=== PATIENT | male | born 2000 | race Caucasian/White ===

== ENCOUNTER 2020-07-14 11:12 | Emergency (ER) | payer MEDICAID, SELFPAY ==
[2020-07-14 11:21] VITALS: BP 139/71; PULSE 98; RESP 16; TEMP 36.8; O2SAT 98; BMI 19.2
--- NOTE | 2020-07-14 11:36 | MHC.RECOVSUP ---
? Reason for consult support o Current location: ED6H o Identified substance use concern: Heroin - Support ? Intervention: o Community resources provided o Harm reduction discussion ? Plan: o Referral to CCC o Patient to follow up with [facility] after discharge ? Additional information: Patient refused detox But was open to starting M.A.T.. Patient was given the resources to the [facility] and [facility]. Patient would like a follow up call...
--- NOTE | 2020-07-14 11:41 | MHC.RECOVSUP ---
Recovery Support note: Patient is a 20 year old Ethiopian speaking male who presented to [facility] ED after using heroin and falling asleep in a car. Patient met with Orchestra Leader, [place], and expressed interest in MAT. This bond underwriter met with patient to discuss MAT and the CCC. Patient reports no questions at this time and states that he wants to discuss it with his family before committing to an appointment. Patient has information for CCC and MAT clinics in the area. Orchestra Leader discussed [facility] [place] and recovery support with patient.
--- NOTE | 2020-07-14 12:40 | ED_ITS ---
HPI - General Adult General Chief complaint: Overdose Stated complaint: HEROIN USE,FOUND IN CAR Time Seen by Provider: 07/14/20 12:56 Source: patient Mode of arrival: ambulatory Limitations: no limitations History of Present Illness HPI narrative: Patient was found sleeping in his car and brought to the ED. patient admits to sniffing heroin and usually when he sniffs heroin he goes into a deep sleep. Patient states he was not trying to kill himself. Patient states it was not an overdose. Patient states he was sleeping in the car. Patient is not suicidal or homicidal. Patient does not want detox, but is interested in Suboxone program. Review of Systems Review of Systems: Yes all other systems are reviewed and are negative Constitutional: Constitutional: Reports as per HPI and Reports no additional constitutional complaints Eyes: Eyes: Reports as per HPI and Reports no additional eye complaints ENT: Reports system reviewed and no additional complaints, except as documented and Reports as per HPI Cardiovascular: Cardiovascular: Reports as per HPI and Reports no additional cardiovascular complaints Respiratory: Respiratory: Reports as per HPI and Reports no additional respiratory complaints Gastrointestinal: Gastrointestinal: Reports as per HPI and Reports no additional gastrointestinal complaints Genitourinary: Genitourinary: Reports no additional male genitourinary complaints and Reports as per HPI Musculoskeletal: Musculoskeletal: Reports no additional musculoskeletal complaints Neurologic: Reports system reviewed and no additional complaints, except as documented and Reports as per HPI Psychiatric: Psychiatric: Reports no additional psychiatric complaints and Reports as per HPI [facility] Past Medical History Medical History (Updated 07/14/20 @ 12:58 by THERESE Morris) No known problems Social History Social History Advance Directives: No Advance Directives Information Provided: No Physical Exam Vital Signs: Vital Signs: Last Vital Signs Temp 98.2 F 07/14/20 11:21 Pulse 98 07/14/20 11:21 Resp 16 07/14/20 11:21 BP 139/71 07/14/20 11:21 Pulse Ox 98 07/14/20 11:21 Body Mass Index 19.2 Const: General: cooperative, healthy appearing, comfortable, no acute distress, well developed, alert and awake Orientation/consciousness: patient oriented x3 HENMT: Head: Yes normal to inspection, Yes No palpable skull fracture present, Yes normocephalic, Yes atraumatic, No abrasion, No Acrocyanosis present, No Jackson's sign, No contusion, No cranial bruits, No hematoma, No laceration, No occipital foramen tenderness, No palpable skull fracture, No raccoon eyes, No scalp lesion, No scalp tenderness, No Temporal artery tenderness present and No periorbital ecchymosis Eyes: General: appearance normal, both eyes and all related structures Neck: Neck: Yes normal visual inspection, Yes full ROM, Yes no lymphadenopathy, Yes no meningeal signs, Yes trachea midline, Yes supple and No tender Chest: Chest palpation & inspection: normal inspection of the chest and normal palpation of entire chest wall Resp: Effort & Inspection: normal respiratory effort and able to speak in complete sentences Auscultation: clear to auscultation bilaterally Cardio: Jugular venous distension: no JVD Heart sounds: S1 normal heart sound present and S2 normal heart sound present GI: Inspection: Yes normal to inspection and No abdominal wall ecchymosis Palpation (GI): Soft to palpation, not firm, nontender, no guarding and not rigid : General: No CVA tenderness and Yes no CVA tenderness Back/Spine/Pelvis: Back: no CVA tenderness, No CVA tenderness and No back tenderness Skin: General skin exam: no rashes or lesions noted and elasticity normal Neuro: General: patient oriented x3, no meningeal signs and CN's II-XI intact bilaterally Cranial nerves: Yes CN's II-XII intact bilaterally Extrem: General: Yes normal to inspection and Yes full ROM Psych: Appearance: grossly normal, well kempt and not disheveled Course Course Course Narrative: Patient will be observed in the ED to make sure oxygen saturation did not desat. Patient to be seen by field hockey and lacrosse coach Reevaluation(s) Reevaluation #1: Patient was seen by field hockey and lacrosse coach and patient refused detox. field hockey and lacrosse coach offered Suboxone program and patient accepted and was seen by at care team consulted for Suboxone. Patient presently is alert oriented x3. Negative for signs of trauma on inspection of body. Patient O2 saturation stayed above 97%. Medical Decision Making MDM Narrative Medical decision making narrative: Opiate abuse Discharge Plan Discharge Clinical Impression: Opiate abuse, continuous Patient Disposition: Home, Self-Care Instructions: Opioid Use Disorder (ED) Additional Instructions: Return to the ED immediately for any suicidal/homicidal ideation, auditory/visual hallucinations, any physical complaints, or any other concerning symptoms. Please follow-up with referred Suboxone program Clinic. Interventions: ED Discharge Assessment Last Done: 07/14/20 14:00 Discharge Date/Time: 07/14/20 13:59 Print Language: Omani
== END 2020-07-14 13:59 | disposition home or self-care (01) ==
PROVIDERS: Emergency Provider Emergency Medicine; PCP Pediatrics
DX: T40.1X1A Poisoning by heroin, accidental (unintentional), initial encounter (principal); Y92.810 Car as the place of occurrence of the external cause; F11.10 Opioid abuse, uncomplicated; Z71.51 Drug abuse counseling and surveillance of drug abuser
CPT/HCPCS: 99283

== ENCOUNTER 2022-04-14 23:07 | Emergency (ER) | payer MEDICAID, SELFPAY ==
[2022-04-14 23:30] VITALS: BP 140/96; BP 148/87; PULSE 104; PULSE 71; RESP 16; TEMP 37.6; O2SAT 97; BMI 21.5
[2022-04-14 23:32] VITALS: BP 148/87; PULSE 71; RESP 16; TEMP 37.6; O2SAT 97
--- NOTE | 2022-04-14 23:37 | ED_ITS ---
HPI - General Adult General Chief complaint: ETOH/Substance Use Stated complaint: DRUG USE,NO COMPLAINTS Source: patient and EMS Mode of arrival: EMS Limitations: no limitations History of Present Illness HPI narrative: This is a 22-year-old male history of substance abuse presenting to the emergency department via ambulance after being found nodding off in his car by police. Patient states that he snorted 1 bag of heroin and use 10 dollars worth of crack. Patient tells me he uses a few times a month. He tells me he is currently in a treatment program and seems to be doing well with it he tells me he may have relapsed today. Patient denies SI and HI. Denies alcohol, tobacco. Denies visual, auditory and tactile hallucinations. Denies medical complaints. He tells me he came in today because the boat canvas maker and installer and courage him to come in and get help. He is alert and oriented x4. Denies any trauma. Related Data Allergies Allergy/AdvReac Type Severity Reaction Status Date / Time Unable to Assess Allergy Unverified 04/14/22 23:37 Review of Systems Review of Systems: Constitutional : No Weight loss, No Fever, No Chills, No Fatigue, No Malaise ENT/Mouth : No sore throat, No Rhinorrhea Eyes: No Eye Pain, No Swelling, No Redness Cardiovascular : No Chest Pain, No SOB, No Dyspnea on Exertion, No Orthopnea, No Edema, No Palpitations Respiratory : No Cough, No Sputum, No Wheezing Gastrointestinal : No Nausea, No Vomiting, No Diarrhea, No Constipation, No abdominal Pain, No Hematochezia, No Melena Genitourinary : No Dysuria, No Urinary Frequency, No Hematuria, Musculoskeletal : No joint pain, No Myalgias, No Joint Swelling Skin : No Skin Lesions, No rash Neuro : No Weakness, No Numbness, No Dizziness, No Headache Psych : No Anxiety/Panic, No Depression All other systems reviewed and are negative Yes all other systems are reviewed and are negative PMFSH Past Medical History Attestation statement: The following information was validated with the patient. Source: old records reviewed and nursing notes reviewed Medical History No known problems Social History Social History Alcohol intake: never Smoked in Last 30 Days: Yes Use of substances other than those prescribed or required for medical reasons: Yes Substance Use Type: Crack/Cocaine and Heroin Advance Directives: No Advance Directives Information Provided: No Physical Exam ED Vital Signs: Vital Signs - 24 hr 04/14/22 23:30 04/14/22 23:32 Temperature 99.7 F 99.7 F Pulse Rate 71 71 Respiratory Rate 16 16 Blood Pressure 148/87 H 148/87 H Pulse Oximetry 97 97 Oxygen Delivery Method Room Air Room Air BMI result Body Mass Index 21.5 Patient's vital signs stable Appearance: Alert.? Oriented X3.? No acute distress.? Head: Normocephalic, atraumatic, no step-offs or deformities Eyes: Pupils equal, round and reactive to light.? ENT: Pharynx normal.? Neck: Normal inspection.? Neck supple.? CVS: Normal heart rate and rhythm.? Pulses normal.? Respiratory: No respiratory distress.? Breath sounds normal.? Abdomen: Soft and nontender.? Skin: Skin warm and dry.? Normal skin color.? Normal skin turgor.? Extremities: No lower extremity edema.? No calf ttp. 5/5 strength to bilateral upper and lower extremities Neuro: Oriented X 3.? No motor deficit.? No sensory deficit. CN 2-12 intact GCS 15 Course Reevaluation(s) Reevaluation #1: Patient continues to appear well, vital signs are stable. COVID negative. Alert and oriented x4. Ambulatory with steady gait. Patient will be discharged home with Narcan. Educated on proper use. Continues to decline a substance use disorder evaluation. Will discharge of patient has a sober ride. Educated patient on diagnosis and treatment plan, answered all question, patient verbalizes understanding. At this time patient will be discharged home, advised to return with new or worsening symptoms. Educated on worrisome signs and symptoms and when to return. At this time I feel comfortable discharge home. Time: 00:26 Medications Administered Discontinued Medications Generic Name Dose Route Start Last Admin Trade Name Freq PRN Reason Stop Dose Admin Naloxone HCl 4 mg 04/14/22 23:41 04/14/22 23:50 Naloxone Hcl Nasal Take Home 4 Mg Reardan NOSTRILALT 04/14/22 23:42 4 mg ONCE ONE Administration Medical Decision Making Medical Decision Making [facility] Narrative: 1140 22-year-old male presents to the emergency department after being found in his car nodding off after using heroin and crack. Tells me this was unintentional, denies SI and HI. No medical complaints. Currently in a program and tells me it is working well for him. He would not like to speak to anybody today. Physical exam benign. No signs of trauma. GCS of 15. Patient alert and oriented x4. Plan at this time is [place], COVID. Will observe patient and monitor him. Lab Data Labs: Lab Results 04/14/22 Range/Units 23:46 COVID-19 ([facility]) Negative (Negative) COVID-19 Clin Com See Note Discharge Plan Discharge Clinical Impression: Opiate misuse, Crack cocaine use Patient Disposition: Home, Self-Care Instructions: Cocaine Abuse (ED), Opioid Use Disorder (ED) Additional Instructions: Take your medications as prescribed. If you were prescribed antibiotics today, it is important that you take your medication to their entirety, do not skip any doses, do not finish them early. Follow-up with your primary care provider this week. Return to the emergency department with new or worsening symptoms. Such as fevers, chills, chest pain, shortness of breath, nausea, vomiting, dizziness, headache, vision changes, lethargy, anxiety, depression, suicidal ideation or homicidal ideation, hallucinations In case of emergency call 911 Please care Narcan with you this can be lifesaving. Referrals: [facility] [Provider Group] - 2 days Physician,Rell Tanner [Primary Care Provider] - 2 days Interventions: [place]-Suicide Risk Severity Scale Last Done: 04/14/22 23:32
[2022-04-14] MEDS: Naloxone HCl Nasal TAKE HOME 4 MG SPRAY NOSTRILALT (23:50)
[2022-04-15 00:07] LABS: COVID-19 Test Negative (Negative); IDNOW Serial# 16C4AD1C
--- NOTE | 2022-04-15 02:21 | PC.NURSE ---
Pt ambulated with no complications. Pt had steady gait, able to hold conversation. A&Ox4. Pt given narcan to take home and discharged
== END 2022-04-15 02:22 | disposition home or self-care (01) ==
PROVIDERS: Physician Assistant; Emergency Provider Emergency Medicine
DX: F19.10 Other psychoactive substance abuse, uncomplicated (principal); F14.99 Cocaine use, unspecified with unspecified cocaine-induced disorder; R40.0 Somnolence; T40.1X1A Poisoning by heroin, accidental (unintentional), initial encounter; Y92.810 Car as the place of occurrence of the external cause; Z20.822 Contact with and (suspected) exposure to COVID-19
CPT/HCPCS: 87635; 99283; 99284